=== PATIENT | female | born 1965 | race Caucasian/White ===

== ENCOUNTER → 2017-08-31 | Outpatient (CLI) | payer OTHER ==
[~2017-08-31] MED LIST: ASPEC81 PO; CZR25 PO; GADAVIST IV PRN
--- NOTE | 2017-08-31 14:17 | DIAGNOSTIC IMAGING REPORT ---
CERVICAL SPINE COMBO HISTORY: 52 years-old Female MS follow-up study in a patient with multiple sclerosis COMPARISON: Brain MRI of same day, cervical spine MRI 01/23/2014 and 03/20/2009 TECHNIQUE: Multiplanar multisequence MRI of the cervical spine was obtained both with and without the use of 8.5 mL Gadavist FINDINGS: The large tdaze-sv-gmak translator and interpreter localizer images demonstrate no focal abnormality. Imaged posterior fossa structures appear to be within normal limits. Multiple foci of increased T2 signal again noted throughout the cervical spinal cord with largest lesions measuring 8 mm at the level of C2 and 9 mm at the level of C4-C5, nicely seen on image 9 of series 14, unchanged from comparison. Ill-defined areas of increased signal are noted extending to the imaged upper thoracic spine at follow-up T3-T4, extending below the field of view. These lesions appear to be in the central and dorsal cervical spinal cord, not as well seen on the axial images. No new lesions are identified. Postcontrast images are mildly motion degraded. No abnormal enhancement identified to suggest active myelination. C2-C3: Mild intervertebral disc space narrowing with uncovertebral spurring and mild facet arthrosis. No significant central canal or foraminal narrowing. C3-C4: Mild intervertebral disc space narrowing with uncovertebral spurring and facet arthrosis. No central canal or foraminal narrowing. C4-C5: Broad-based posterior disc osteophyte complex with mild facet arthrosis indents the ventral thecal sac and causes mild bilateral foraminal narrowing, slightly progressed from comparison. C5-C6: Mild intervertebral disc space narrowing with circumferential disc osteophyte complex and mild facet arthrosis causing mild central canal and moderate bilateral foraminal narrowing, also worsened from prior study. C6-C7: Mild intervertebral disc space narrowing with uncovertebral spurring and small posterior disc bulge. Mild flattening of the ventral thecal sac. Mild facet arthrosis. Foramen are generally patent. C7-T1: Normal. IMPRESSION: 1. Redemonstration of multiple foci of increased T2 signal throughout the cervical and imaged thoracic spine which appear to be in a similar distribution and morphology from comparison study dated 01/23/2014 compatible with patient's clinical diagnosis of multiple sclerosis. No definite new lesions identified. No abnormal enhancement identified to suggest active demyelination. 2. Progressively worsened discogenic degenerative changes and facet arthropathy as above, most pronounced at C4-C5 and C5-C6. 3. Mildly motion degraded exam. The above report was generated using voice recognition software. It may contain grammatical, syntax or spelling errors. Electronically signed by: Kenji Al M.D. 08/31/2017 2:16 PM Dictated Date/Time: 08/31/2017 2:05 PM
--- NOTE | 2017-08-31 14:19 | DIAGNOSTIC IMAGING REPORT ---
MRI OF THE BRAIN COMBO CLINICAL HISTORY: Multiple sclerosis follow-up. Headaches. COMPARISON STUDY: MRI of the brain dated 01/23/2014. TECHNIQUE: MRI of the brain was performed utilizing various T1 and T2-weighted sequences in the axial, sagittal, and coronal planes. Contrast-enhanced sequences were acquired following the administration of 8.5 cc of Gadavist. FINDINGS: Brain parenchyma: There are numerous foci of T2 signal abnormality identified within the subcortical and periventricular white matter. Several of these are located antiparallel to the ventricles, and the appearance is consistent with the reported clinical history of multiple sclerosis. No abnormal enhancement is identified postcontrast images to suggest active demyelination. These findings have only minimally progressed from Nov 02 2813 examination. There is no hemorrhage or mass effect. There is no restricted diffusion to suggest acute ischemia. No enhancing mass lesion is identified on the postcontrast images. Kennedy-white matter differentiation is preserved. No extra-axial fluid collection is seen. The cerebellar tonsils are normal in configuration. Ventricles, sulci, and cisterns: Normal in configuration. Pituitary and sella: Unremarkable. Intracranial vasculature: Normal flow voids are maintained at the skull base. Orbits: The bony orbits are grossly intact. Orbital contents are normal in appearance. Sinuses and mastoids: Clear. Calvarium: Unremarkable. Cervical cord: Partially visualized cervical spinal cord is normal in morphology and signal intensity. IMPRESSION: 1. There are numerous foci of T2 signal in amount is identified consistent with reported clinical history of multiple sclerosis. No abnormal enhancement is identified on the postcontrast sequences. 2. These findings have only minimally progressed as compared to the 2013 examination. 3. No acute intracranial abnormality is seen. Electronically signed by: Carroll Urena M.D. 08/31/2017 2:17 PM Dictated Date/Time: 08/31/2017 2:01 PM
== END | disposition home or self-care (01) ==
LOC: C.MRIBC 11:55
PROVIDERS: ATTEND Psychiatry & Neurology Neurology
DX: G35 Multiple sclerosis (principal); M50.30 Other cervical disc degeneration, unspecified cervical region; M46.92 Unspecified inflammatory spondylopathy, cervical region

== ENCOUNTER 2017-11-11 15:19 | Emergency (ER) | payer OTHER ==
[~2017-11-11] VITALS: Ht 154.9 cm; Wt 82.8 kg
[~2017-11-11 15:19] MED LIST changes: -ASPEC81 PO; +ASPI-320 PO; -GADAVIST IV PRN
[2017-11-11 15:23] VITALS: TEMP 36.9; Ht 154.9 cm; Wt 82.8 kg
[2017-11-11] MEDS ORDERED: ONDANSETRON INJ 2 MG/ML 2 ML VIAL IV STA (15:53)
[2017-11-11] MEDS ORDERED: SODIUM CHLORIDE 0.9% 1000ML 1,000 ML IV STA (15:53)
--- NOTE | 2017-11-11 15:57 | EMERGENCY ROOM VISIT NOTE ---
History First contact with patient: 15:43 Chief Complaint: ABDOMINAL PAIN Stated Complaint: PAINS IN STOMACH,NAUSEA,DIARRHEA Nursing Triage Summary: pt reports "I feel like I'm going to pass out." reports dry heaving and diarrhea sine this morning wiht bilateral abd pain that radiates into back. History of Present Illness The patient is a 52 year old female who presents to the Emergency Room via private vehicle accompanied by with complaints of "pains in stomach, nausea, diarrhea". The patient notes a history of MS. She states that yesterday she started feeling ill, and then around 4 AM woke up with dry heaves and diarrhea. She notes pain going into her low back and the kidney area. She feels as if she is going to pass out. From all the dry heaving she now believes some tightness in the chest and back has occurred. She denies taking any medications today. Her pain is exacerbated with eating. She rates the overall pain as a 7/10. She notes that she did eat a hibachi grill 2 days ago. No close contacts are ill. She notes a history of laparoscopic surgeries in the abdomen which her appendix has been removed. The gallbladder is still present. 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 She denies any vaginal discharge, bleeding or urinary symptoms. Review of Systems A complete 10-point Review of Systems was discussed with the patient, with pertinent positives and negatives listed in the History of Present Illness. All remaining Review of Systems questions can be considered negative unless otherwise specified. Past Medical/Surgical History Medical Problems: (1) HTN (hypertension) (2) Left Forearm ORIF (3) Multiple sclerosis Surgical Problems: (1) S/P appendectomy (2) S/P dilation and curettage (3) S/P endometrial ablation (4) S/P sinus surgery (5) S/P tubal ligation Social History Smoking Status: Never Smoker Drug Use: none Marital Status: Housing Status: lives with family Occupation Status: employed Current/Historical Medications Scheduled Aspirin (Aspirin Ec), 81 MG PO QPM Etodolac (Etodolac Er), 1,000 MG PO QPM Zresrdyiage-Dvvzlrqcjzm-Fmu C- (Glucosamine Chondroitin), 1 TAB PO QPM Losartan Potassium (Losartan Potassium), 12.5 MG PO HS Ondasetron Odt (Zofran Odt), 4 MG SL Q6H Pantoprazole (Protonix), 40 MG PO QAM Scheduled PRN Oxycodone Ir (Roxicodone Ir), 1-2 TAB PO Q4H PRN for Pain Physical Exam Vital Signs Date Time Temp Pulse Resp B/P (MAP) Pulse Ox O2 Delivery O2 Flow Rate FiO2 11/11/17 20:19 82 20 141/78 96 11/11/17 19:10 71 28 96 Room Air 11/11/17 19:01 132/78 11/11/17 18:31 133/79 11/11/17 18:10 64 30 96 Room Air 11/11/17 18:07 77 18 145/91 95 Room Air 11/11/17 17:31 149/85 11/11/17 17:10 86 27 95 Room Air 11/11/17 17:05 69 27 95 Room Air 11/11/17 17:01 128/75 11/11/17 16:35 83 20 95 Room Air 11/11/17 16:33 71 11/11/17 16:30 93 Room Air 11/11/17 16:30 75 21 125/72 93 Room Air 11/11/17 15:23 36.9 91 20 136/80 95 Room Air Physical Exam VITAL SIGNS - Vital signs and nursing notes were reviewed. Stable. Afebrile. GENERAL -52-year-old female appearing her stated age who is in no acute distress. Communicates well with provider and answers questions appropriately. SKIN - Without rashes. No meningeal or petechial rash. HEAD - NC/AT. EYES - PERRL with EOMI bilaterally. Sclera anicteric. EARS - No deformities of external structures noted on gross examination bilaterally. NOSE - Midline and without cyanosis. No epistaxis or purulent drainage noted. MOUTH/OROPHARYNX - Without perioral cyanosis. NECK - Neck with FROM. No nuchal rigidity. LUNGS - Chest wall symmetric without accessory muscle use, intercostals retractions, or central cyanosis. Normal vesicular breath sounds CTA B/L. No wheezes, rales, or rhonchi appreciated. CARDIAC - RRR with S1/S2. No murmur, rubs, or gallops appreciated. ABDOMEN - Abdominal contour normal without pulsations or visible masses. BS normoactive all four quadrants. Diffuse abdominal tenderness worse in the upper quadrants noted. No rigid abdomen. No palpable masses, hepatosplenomegaly, or ascites noted. EXTREMITIES - No clubbing or peripheral cyanosis. No pretibial edema present. +5 /5 strength noted in UE/LE bilaterally. NEUROLOGIC - Cranial nerves II through XII grossly intact. Sensory intact to light touch throughout. PSYCH - A&O, and cooperates fully with examiner. Pt is very pleasant and interacts well with examiner. Medical Decision & Procedures ER Provider Diagnostic Interpretation: ABDOMEN AND PELVIS CT WITH IV AND ORAL CONTRAST CT DOSE: 642.66 mGy.cm HISTORY: Acute generalized abdominal pain with nausea and diarrhea Abd pain, nausea, diarrhea TECHNIQUE: Multiaxial CT images of the abdomen and pelvis were performed following the use of intravenous and oral contrast. A dose lowering technique was utilized adhering to the principles of ALARA. COMPARISON STUDY: CT abdomen and pelvis 03/20/2010. FINDINGS: Mild subsegmental bibasilar atelectasis. No pneumatosis or pneumoperitoneum. Imaged inferior cardiac chambers are unremarkable. Liver, gallbladder, spleen, pancreas and adrenal glands are within normal limits. 4 mm low attenuating lesion of the interpolar left kidney suggests renal cyst. No renal calculi or hydronephrosis. Mild wall thickening of the bladder with partial distention. Peripherally enhancing cystic lesion about the right adnexum suggests involuting follicle. Mild free pelvic fluid. Mildly prominent uterus with ill-defined 1.6 cm lesion involving the uterine fundus. No aortic aneurysm or pathologic adenopathy. There is no bowel obstruction. Prior appendectomy. There is moderate wall thickening with surrounding inflammatory stranding involving several loops of small bowel within the lower abdomen and pelvis. Soft tissues are unremarkable. The bones appear mildly demineralized. Severe left and moderate right hip osteoarthritis. IMPRESSION: 1. Moderate wall thickening with surrounding inflammatory stranding involves several loops of small bowel within the lower abdomen and pelvis suggesting infectious or inflammatory enteritis without evidence of bowel obstruction. 2. Prior appendectomy. 3. 1.6 cm ill-defined lesion of the uterine fundus suggests myometrial leiomyoma. 4. Small involuting follicle about the right ovary. Electronically signed by: Kenji Al M.D. 11/11/2017 7:16 PM Dictated Date/Time: 11/11/2017 7:08 PM Laboratory Results 11/11/17 16:20 Red Blood Count 4.57, Mean Corpuscular Volume 89.3, Mean Corpuscular Hemoglobin 30.6, Mean Corpuscular Hemoglobin Concent 34.3, Mean Platelet Volume 9.5, Neutrophils (%) (Auto) 86.6, Lymphocytes (%) (Auto) 10.4, Monocytes (%) (Auto) 2.9, Eosinophils (%) (Auto) 0.0, Basophils (%) (Auto) 0.0, Neutrophils # (Auto) 6.79, Lymphocytes # (Auto) 0.82, Monocytes # (Auto) 0.23, Eosinophils # (Auto) 0.00, Basophils # (Auto) 0.00 11/11/17 16:20 Test 11/11/17 16:20 White Blood Count 7.85 K/uL (4.8-10.8) Red Blood Count 4.57 M/uL (4.2-5.4) Hemoglobin 14.0 g/dL (12.0-16.0) Hematocrit 40.8 % (37-47) Mean Corpuscular Volume 89.3 fL (80-100) Mean Corpuscular Hemoglobin 30.6 pg (25-34) Mean Corpuscular Hemoglobin Concent 34.3 g/dl (32-36) Platelet Count 207 K/uL (130-400) Mean Platelet Volume 9.5 fL (7.4-10.4) Neutrophils (%) (Auto) 86.6 % Lymphocytes (%) (Auto) 10.4 % Monocytes (%) (Auto) 2.9 % Eosinophils (%) (Auto) 0.0 % Basophils (%) (Auto) 0.0 % Neutrophils # (Auto) 6.79 K/uL (1.4-6.5) Lymphocytes # (Auto) 0.82 K/uL (1.2-3.4) Monocytes # (Auto) 0.23 K/uL (0.11-0.59) Eosinophils # (Auto) 0.00 K/uL (0-0.5) Basophils # (Auto) 0.00 K/uL (0-0.2) RDW Standard Deviation 41.4 fL (36.4-46.3) RDW Coefficient of Variation 12.8 % (11.5-14.5) Immature Granulocyte % (Auto) 0.1 % Immature Granulocyte # (Auto) 0.01 K/uL (0.00-0.02) Urine Color DK YELLOW Urine Appearance CLOUDY (CLEAR) Urine pH 5.0 (4.5-7.5) Urine Specific Hamilton 1.034 (1.000-1.030) Urine Protein NEG (NEG) Urine Glucose (UA) NEG (NEG) Urine Ketones TRACE (NEG) Urine Occult Blood NEG (NEG) Urine Nitrite NEG (NEG) Urine Bilirubin NEG (NEG) Urine Urobilinogen NEG (NEG) Urine Leukocyte Esterase NEG (NEG) Urine WBC (Auto) 1-5 /hpf (0-5) Urine RBC (Auto) 0-4 /hpf (0-4) Urine Hyaline Casts (Auto) 5-10 /lpf (0-5) Urine Epithelial Cells (Auto) >30 /lpf (0-5) Urine Bacteria (Auto) NEG (NEG) Urine Crystals (NONE PRSENT) Urine Yeast (Auto) (NONE PRSENT) Urine Test NEG (NEG) Anion Gap 7.0 mmol/L (3-11) Est Creatinine Clear Calc Drug Dose 71.3 ml/min Estimated GFR () 84.1 Estimated GFR (Non- 72.6 BUN/Creatinine Ratio 13.5 (10-20) Calcium Level 8.6 mg/dl (8.5-10.1) Magnesium Level 2.1 mg/dl (1.8-2.4) Total Bilirubin 0.6 mg/dl (0.2-1) Aspartate Amino Transf (AST/SGOT) 14 U/L (15-37) Alanine Aminotransferase (ALT/SGPT) 19 U/L (12-78) Alkaline Phosphatase 58 U/L (45-117) Troponin I < 0.015 ng/ml (0-0.045) Total Protein 7.6 gm/dl (6.4-8.2) Albumin 3.6 gm/dl (3.4-5.0) Globulin 4.0 gm/dl (2.5-4.0) Albumin/Globulin Ratio 0.9 (0.9-2) Lipase 126 U/L (73-393) Thyroid Stimulating Hormone (TSH) 0.598 uIu/ml (0.300-4.500) Medications Administered Medications (Trade) Dose Ordered Sig/Valeria Route Start Time Stop Time Status Last Admin Dose Admin Sodium Chloride 1,000 ml @ 999 mls/hr Q1H1M STAT IV 11/11/17 15:53 5/16/18 16:53 DC 11/11/17 16:27 999 MLS/HR Ondansetron HCl (Zofran Inj) 4 mg NOW STAT IV 11/11/17 15:53 11/11/17 15:55 DC 11/11/17 16:27 4 MG Oxycodone HCl (Roxicodone Immediate Rel 5MG Home Pack) 1 homepack UD STAT PO 11/11/17 19:42 11/11/17 19:43 DC 11/11/17 20:12 1 HOMEPACK Ondansetron HCl (ZOFRAN ODT 4MG Home Pack) 1 homepack UD STAT PO 11/11/17 19:42 11/11/17 19:43 DC 11/11/17 20:12 1 HOMEPACK Medical Decision Patient was seen and evaluated as above in room C3. Review was performed of nursing notes and vital signs. After obtaining a thorough history and physical examination the above work up was performed. Secondary to the patient's presentation I did elect to obtain baseline labs as well as bedside EKG with the associated chest tightness. And reveals normal sinus rhythm, per my interpretation at a rate of 76 bpm. No evidence of DE. Additionally there is no concerning leukocytosis, anemia or metabolic abnormality. Urine I do not believe shows any evidence of UTI but culture pending. I did elect to obtain a CT scan of the patient's abdomen and pelvis secondary to her presentation as well. Results as above. Enteritis noted. I favor this likely to be viral in nature. I did elect to discuss the case with the attending physician, as well as the on-call GI specialist for [facility]. I spoke with Dr. Panchal. The patient will call his office to schedule follow-up. I believe she is stable for outpatient management. Humphreys diet recommended. She is to call the family doctor as well as a GI specialist for follow-up. She is to return with worsening. The patient was educated upon management, had questions answered prior to discharge, and was discharged home in good condition. I did provide her with a written order for stool culture, C. difficile toxin B gene, and Giardia. She was given a kit so that she may provide sample at home as she was unable to provide sample here. Case was discussed with the attending physician. I attest that I have personally reviewed the patient medication list. I attest that I have reviewed the patient's blood pressure and it was found to be elevated likely secondary to situation per In the evaluation and treatment of this patient the following differential diagnoses were entertained: Diverticulitis, enteritis, appendicitis, ovarian torsion, acute intra-abdominal etiology, among others. Impression Primary Impression: Enteritis Departure Information Dispostion Home / Self-Care Condition GOOD Prescriptions Oxycodone Ir (Roxicodone Ir) 5 Mg Tab 1-2 TAB PO Q4H Y for Pain, #15 TAB For Initial Treatment Prov: Simone Hayes PA-C 11/11/17 Ondasetron Odt (ZOFRAN ODT) 4 Mg Tab 4 MG SL Q6H for Nausea, #9 TAB Prov: Simone Hayes PA-C 11/11/17 Referrals Mary Resendiz D.O. (PCP) Salome Panchal M.D. Patient Instructions My [facility] Additional Instructions You have been treated in the Emergency Department your Abdominal Pain. Laboratory results and imaging studies have ruled out any emergent causes for your abdominal pain which would warrant admission or surgery. There is enteritis/inflammation in the small intestine likely from something you ate or from a virus. I recommend a bland soft diet for the next few days. Please stay well-hydrated. You have been prescribed oxycodone immediate release to be used for pain control. This is a narcotic medication. You cannot drive or consume alcohol while on this medicine. This medicine should only be used for pain that cannot be controlled with elka-yvr-wwgucfe pain medicines. You have been prescribed Zofran to be used for any nausea or vomiting. Take as prescribed. For pain control, you can use the following lmcx-lll-vtkcoun medicines (if >12 yo): - Regular strength (325mg/tab) Tylenol (acetaminophen) 2 tabs every 4-6 hours as needed. Do not exceed 12 tablets in a 24 hour period. Avoid taking more than 3 grams (3000 mg) of Tylenol per day. This includes any other sources of acetaminophen you may take on a regular basis. - Regular strength (200 mg/tab) Advil (ibuprofen) 1-2 tabs every 4-6 hours as needed. Do not exceed a dose of 3200 mg per day. Drink plenty of water and stay well hydrated. As with any trip to the Emergency Department, you should follow-up with your Primary Care Provider from today's visit. Please also follow with GI. Number listed. If you do not have a phone call from them by tomorrow at noon please give him a call. Please also provide stool sample and return here to the hospital. I have listed the prescription of which copies your family doctor Dr. Resendiz with results. Please have this refrigerated until you bring it here for examination. Thank you Return to the emergency department if your symptoms persist despite treatment plan outlined above or if the following symptoms occur: increased fevers, chills , worsening nausea/vomiting, blood in your stool or urine. Thank you and have a good evening.
[2017-11-11 16:30] VITALS: O2SAT 93
[2017-11-11 16:45] LABS: HEMATOCRIT 40.8 % (37-47); IG# 0.01 K/uL (0.00-0.02); LYMPH % 10.4 %; LYMPH ABS # 0.82 K/uL (1.2-3.4); MEAN CELL VOLUME 89.3 fL (80-100); MEAN CORPUSCULAR HEMOGLOBIN 30.6 pg (25-34); MEAN CORPUSCULAR HGB CONC 34.3 g/dl (32-36); MEAN PLATELET VOLUME 9.5 fL (7.4-10.4); MONO % 2.9 %; MONO ABS # 0.23 K/uL (0.11-0.59); NEUT % 86.6 %; NEUT ABS # 6.79 K/uL (1.4-6.5); PLATELET COUNT 207 K/uL (130-400); RED CELL DISTRIBUTION WIDTH CV 12.8 % (11.5-14.5); RED CELL DISTRIBUTION WIDTH SD 41.4 fL (36.4-46.3); WHITE BLOOD COUNT 7.85 K/uL (4.8-10.8)
[2017-11-11] MEDS ORDERED: OPTIRAY 320 IV PRN (16:45)
[2017-11-11] MEDS ORDERED: GLUCTAB7 PO (17:18)
[2017-11-11] MEDS ORDERED: PANT40TA PO (17:18)
[2017-11-11] MEDS ORDERED: ASPI81TA28 PO (17:18)
[2017-11-11] MEDS ORDERED: CZR25 PO (17:18)
[2017-11-11] MEDS ORDERED: ETOD500T PO (17:18)
[2017-11-11 17:20] LABS: ALBUMIN 3.6 gm/dl (3.4-5.0); ALKALINE PHOSPHATASE 58 U/L (45-117); ALT/SGPT 19 U/L (12-78); AST/SGOT 14 U/L (15-37); BLOOD UREA NITROGEN 12 mg/dl (7-18); CALCIUM 8.6 mg/dl (8.5-10.1); CARBON DIOXIDE 24 mmol/L (21-32); CREATININE 0.92 mg/dl (0.60-1.20); GLUCOSE 115 mg/dl (70-99); LIPASE 126 U/L (73-393); POTASSIUM 3.7 mmol/L (3.5-5.1); SODIUM 138 mmol/L (136-145); TOTAL PROTEIN 7.6 gm/dl (6.4-8.2)
--- NOTE | 2017-11-11 19:18 | DIAGNOSTIC IMAGING REPORT ---
ABDOMEN AND PELVIS CT WITH IV AND ORAL CONTRAST CT DOSE: 642.66 mGy.cm HISTORY: Acute generalized abdominal pain with nausea and diarrhea Abd pain, nausea, diarrhea TECHNIQUE: Multiaxial CT images of the abdomen and pelvis were performed following the use of intravenous and oral contrast. A dose lowering technique was utilized adhering to the principles of ALARA. COMPARISON STUDY: CT abdomen and pelvis 03/20/2010. FINDINGS: Mild subsegmental bibasilar atelectasis. No pneumatosis or pneumoperitoneum. Imaged inferior cardiac chambers are unremarkable. Liver, gallbladder, spleen, pancreas and adrenal glands are within normal limits. 4 mm low attenuating lesion of the interpolar left kidney suggests renal cyst. No renal calculi or hydronephrosis. Mild wall thickening of the bladder with partial distention. Peripherally enhancing cystic lesion about the right adnexum suggests involuting follicle. Mild free pelvic fluid. Mildly prominent uterus with ill-defined 1.6 cm lesion involving the uterine fundus. No aortic aneurysm or pathologic adenopathy. There is no bowel obstruction. Prior appendectomy. There is moderate wall thickening with surrounding inflammatory stranding involving several loops of small bowel within the lower abdomen and pelvis. Soft tissues are unremarkable. The bones appear mildly demineralized. Severe left and moderate right hip osteoarthritis. IMPRESSION: 1. Moderate wall thickening with surrounding inflammatory stranding involves several loops of small bowel within the lower abdomen and pelvis suggesting infectious or inflammatory enteritis without evidence of bowel obstruction. 2. Prior appendectomy. 3. 1.6 cm ill-defined lesion of the uterine fundus suggests myometrial leiomyoma. 4. Small involuting follicle about the right ovary. Electronically signed by: Kenji Al M.D. 11/11/2017 7:16 PM Dictated Date/Time: 11/11/2017 7:08 PM
[2017-11-11] MEDS ORDERED: OXYCODONE IR HOME PACK PO STA (19:42)
[2017-11-11] MEDS ORDERED: ONDANSETRON HOME PACK 4MG OD TAB PO STA (19:42)
[2017-11-11] MEDS ORDERED: OXYC1TAB3 PO (19:43)
[2017-11-11] MEDS ORDERED: ONDA4TAB10 SL (19:43)
[2017-11-11 20:19] VITALS: BP 141/78; PULSE 82; O2SAT 96
== END 2017-11-11 20:15 | disposition home or self-care (01) ==
LOC: C.EDB 15:20 → C.EDC 20:15
DX: K52.9 Noninfective gastroenteritis and colitis, unspecified (principal); G35 Multiple sclerosis; I10 Essential (primary) hypertension; Z98.51 Tubal ligation status; Z79.82 Long term (current) use of aspirin; Z79.899 Other long term (current) drug therapy

== ENCOUNTER 2019-11-11 10:57 | Inpatient (IN) ==
[2019-11-11] MEDS ORDERED: SODIUM CHLORIDE 0.9% 1000ML 1,000 ML IV ONE (11:23)
[2019-11-11] MEDS ORDERED: ACETAMINOPHEN 1,000 MG/100 ML VIAL IV STA (11:23)
[2019-11-11] MEDS ORDERED: ONDANSETRON INJ 2 MG/ML 2 ML VIAL IV STA (11:23)
--- NOTE | 2019-11-11 11:45 | XRay Report ---
XR chest 1V portable HISTORY: 54 years-old Female left flank pain acute left-sided flank pain with chest pain COMPARISON: Chest radiograph 03/20/2015 TECHNIQUE: Portable AP view of the chest FINDINGS: Cardiac silhouette is upper limits of normal in size. Mild interstitial coarsening of the lung bases likely secondary to summation density. No pneumothorax, pleural effusion, airspace consolidation or o vert pulmonary edema. Degenerative changes of the shoulders and spine. IMPRESSION: No acute process. ACT 112: Negative or not required by law. The above report was generated using voice recognition software. It may contain grammatical, syntax o r spelling errors. Electronically signed by: Kenji Al M.D. 11/11/2019 11:43 AM
--- NOTE | 2019-11-11 11:56 | Emergency Department Note ---
History of Present Illness General Chief Complaint: Flank Pain Stated Complaint: KIDNEY PAIN - SHARP STABBING FEELING Source: patient Mode of arrival: ambulatory Limitations: no limitations History of Present Illness Provider Complaint: abdominal pain and flank pain Onset (ago): 1 day(s) Pain Consistency: intermittent Location: L flank Radiation: LLQ and back Migration to: no migration Severity: severe Maximum Pain Intensity: 8 Current Pain Intensity: 8 Quality: + sharp Relieved By: + nothing Exacerbated By: + movement and + other (deep breathing) Associated Symptoms: + nausea and + chills; no vomiting, no diarrhea, no fever, no constipation, no dysuria, no hematemesis, no hematochezia, no melena, no hematuria, no chest pain and no breathing difficulty Treatments prior to arrival: none This 54-year-old female patient significant past medical history of MS presents the emergency department today, ambulatory, complaining of left flank pain which came on suddenly at 2 AM. The patient describes a stabbing and sharp sensation radiating to her left lower quadrant and up toward her shoulder and neck. The pain is somewhat better now than it was at 2 AM, but she has taken no medication . The pain is worse with deep breathing, but she denies any difficulty breathing. She denies any history of similar symptoms. She is never had pain like this before. She denies any chest pain. The patient denies any hematuria, urinary frequency, urinary hesitancy. She denies any fever or recent illness. She does complain of hot bath stress, but states this is typical since menopause. Patient denies any cough. She denies any recent injury or potential for injury. She states for the past 3 to 4 months, she has been experiencing bilateral edema in her ankles. She is dealing with "bad hips", and states her PCP attributed be ankle edema to the hip injuries. She denies any edema or pain into the calf. She denies any recent travel or procedures. She does report a history of a superficial venous thrombus after a traumatic injury several years ago, but denies any history of DVT or PE. She has a positive family history of PE and states her mother had an IVC filter placed. The edema has not changed since the onset of the flank pain. Home Medications Home Medications Medication Instructions Recorded Confirmed Type etodolac 1,000 mg PO DAILY 07/17/18 11/11/19 History [id number] 2 tab PO QPM 07/17/18 11/11/19 History [Glucosamine Chondroitin PLUS] losartan 12.5 mg PO DAILY 07/17/18 11/11/19 History pantoprazole [Protonix] 40 mg PO DAILY 07/17/18 11/11/19 History furosemide 20 mg PO DAILY PRN 11/11/19 11/11/19 History hydrocortisone acetate 25 mg OR BID PRN 11/11/19 11/11/19 History melatonin 0.3 mg PO HS PRN 11/11/19 11/11/19 History nitroglycerin [Nitro-Bid] 500 mg TOPICAL BID PRN 11/11/19 11/11/19 History Allergies Allergy/AdvReac Type Severity Reaction Status Date / Time propoxyphene AdvReac Unknown UPSET Verified 11/11/19 13:48 STOMACH FROM DARVOCET Past Med/Surg History Medical History (Updated 11/11/19 @ 15:11 by Kyara Salazar PA-C) HTN (hypertension) (Chronic) Multiple sclerosis (Chronic) Surgical History S/P appendectomy (Resolved) S/P S/P dilation and curettage (Resolved) S/P endometrial ablation (Resolved) S/P sinus surgery (Resolved) S/P tubal ligation (Resolved) Family History Mother Pulmonary embolism IVC Filter, unclear etiology Social History Preferred Language: [place] Communication Ability: Effective Talent Management Specialist Required: No Beliefs That Will Affect Care: None marital status: Current Living Situation: Spouse current occupational status: employed Other Information That Helps Us Care for You: No Feels Safe at Home: Yes Safety Concerns: Feels Safe At This Time Smoking Status: Never smoker Do You Dip or Chew Tobacco: No ; Second Hand Exposure: No ; Tobacco Cessation Education Requested by Patient: No Hx Alcohol Use: Yes Hx Substance Use: No Review of Systems A total of 10 systems reviewed and were otherwise negative Physical Exam Vital Signs: Vital Signs - 24 hr 11/11/19 11:02 11/11/19 11:51 11/11/19 12:14 Temperature Source Oral Pulse Rate 76 Pulse Rhythm Regular Pulse Strength Normal Respiratory Rate 23 Respiratory Effort / Characteristics Non-Labored Sponta neous Respiratory Depth Normal Respiratory Patter n Regular Blood Pressure 166/100 H 187/89 H Blood Pressure Brit n 122 121 Pulse Oximetry 97 95 Oxygen Delivery Me thod Room Air Room Air Room Air Sepsis Recent Feve r Within 48 Hours No Sepsis Action Take n by Nursing No Action Required Physical Exam: VITALS: Vitals are noted on the nurse's note and reviewed by myself. Vital signs stable. GENERAL: This is a 54-year-old white female, in no acute distress, nondiaphoretic, well-developed well-nourished. SKIN: The skin was without rashes, erythema, edema, or bruising. There is no tenting of the skin. Capillary refill less than 2 seconds. HEAD: Normocephalic atraumatic. EYES: Conjunctivae without injection, sclerae without icterus. NECK: Supple without nuchal rigidity. No lymphadenopathy. No thyromegaly. Cervical spine is nontender. No JVD. HEART: Regular rate and rhythm without murmurs gallops or rubs. LUNGS: Clear to auscultation bilaterally without wheezes, rales or rhonchi. No retractions or accessory muscle use. ABDOMEN: Positive bowel sounds x 4. Normal tympanic percussion. Left CVA tenderness to palpation. Bilateral lower abdominal tenderness palpation. Abdomen is otherwise soft, nontender, without masses or organomegaly. No guarding or rebound tenderness. MUSCULOSKELETAL: No muscle atrophy, erythema, or edema noted. Full range of motion without joint tenderness in all extremities. No tenderness to palpation. Normal gait. Strength 5/5 throughout. Negative Homans sign bilaterally. No palpable cord. NEURO: Patient was alert and oriented to person place and time. No focal neurological deficits. Course Course The patient was seen and evaluated as above. An order was placed for continuous cardiac monitoring. The monitor shows a normal sinus rhythm at a rate of 76 bpm. IV access obtained, labs drawn. Patient medicated with IV fluids, Zofran, and acetaminophen. Imaging (CT abdomen/pelvis and chest x-ray) performed and reviewed by myself and radiologist as noted. Labs reviewed by myself. I discussed the findings with the patient at bedside. She was reassessed and is noting some improvement in symptoms. I did recommend a CT angiogram of the chest due to the positive d-dimer and location of the patient's pain. Patient was agreeable. I discussed case with my attending physician. CTA chest performed and reviewed by myself and radiologist as noted. I discussed findings with patient at bedside. The patient was seen and evaluated by my attending physician. Admission recommended given the patient's MS and hypertension history, as well as leg pain. Ultrasound bilateral lower extremities ordered. I discussed the case with the commissioning manager. I discussed the case with the [facility] hospitalist, Leana Levy PA-C. She did agree to see and evaluate the patient for admission. Administered Medications Heparin Sodium/Dextrose (Heparin Sodium/Dextrose) 25,000 units in 500 mls @ 23 mls/hr IV .[id number] CAESAR; Protocol Stop: 12/11/19 13:29 Last Admin: 11/11/19 14:02 Dose: 1,150 units/hr, 23 mls/hr Documented by: [id number] Cosigned by: [id number] Ioversol (Optiray 320 125ml) 120 ml IV ONCE PRN PRN Reason: Interaction Checking Stop: 11/15/19 12:50 Last Admin: 11/11/19 12:51 Dose: 120 ml Documented by: [id number] Discontinued Medications Heparin Sodium (Porcine) (Heparin Sodium (Porcine)) Confirm Administered Dose 5,000 units .ROUTE .STK-MED ONE Stop: 11/11/19 13:56 Last Admin: 11/11/19 14:02 Dose: 5,000 units Documented by: [id number] Cosigned by: [id number] Heparin Sodium/Dextrose () 1 ea IV NOW STA; Protocol Stop: 11/11/19 13:22 Last Admin: 11/11/19 14:07 Dose: Not Given Documented by: [id number] Sodium Chloride (Nss 1000ml) 1,000 mls @ 999 mls/hr IV .[id number] ONE Stop: 11/11/19 12:23 Last Infusion: 11/11/19 12:47 Dose: 0 mls/hr Documented by: [id number] Admin: 11/11/19 11:45 Dose: 999 mls/hr Documented by: [id number] Acetaminophen (Ofirmev) 1,000 mg in 100 mls @ 400 mls/hr IV NOW STA Stop: 11/11/19 11:37 Last Infusion: 11/11/19 12:04 Dose: 0 mls/hr Documented by: [id number] Admin: 11/11/19 11:45 Dose: 400 mls/hr Documented by: [id number] Ondansetron HCl (Zofran) 4 mg IV NOW STA Stop: 11/11/19 11:24 Last Admin: 11/11/19 11:47 Dose: 4 mg Documented by: [id number] Medical Decision Making Differential Diagnosis + peptic ulcer disease, + biliary pathology, + UTI, + obstruction, + mesenteric ischemia, + aortic pathology, + infections, + inflammatory bowel disease, + renal colic, + ectopic (female), + ovarian torsion (female), + tubo- ovarian abscesses (female), + pelvic inflammatory disease (female), + abdominal pain, + appendicitis, + calculus of kidney, + constipation, + diverticulitis, + endometriosis, + gastroenteritis, + pancreatitis and + small bowel obstruction In addition to the above, PE, acute coronary syndrome, among others were considered. Home Medications Current Medication List: was personally reviewed by me Laboratory Data Attestation: I reviewed the patient's lab results. No leukocytosis, anemia, thrombocytopenia. Renal, hepatic function, and electrolytes without significant abnormality. Urinalysis negative for blood or infection. Urine test negative. D-dimer elevated greater than 3000. Coags otherwise normal. Troponin negative. Lipase 126. Result diagrams: 11/11/19 11:45 11/11/19 11:45 Lab Results 11/11/19 11/11/19 11/11/19 Range/Units 11:30 11:30 11:45 WBC 9.31 (4.8-10.8) K/uL RBC 4.65 (4.2-5.4) M/uL Hgb 14.2 (12.0-16.0) g/dL Hct 42.3 (37-47) % MCV 91.0 (80-100) fL MCH 30.5 (25-34) pg MCHC 33.6 (32-36) g/dL RDW Std Deviation 42.7 (36.4-46.3) fL RDW Coeff of [place] 12.9 (11.5-14.5) % Plt Count 235 (130-400) K/uL MPV 9.7 (7.4-10.4) fL Immature Gran % (Auto) 0.3 % Neut % (Auto) 79.6 % Lymph % (Auto) 12.2 % [place] % (Auto) 7.5 % Eos % (Auto) 0.3 % Baso % (Auto) 0.1 % Immature Gran # (Auto) 0.03 H (0.00-0.02) K/uL Neut # (Auto) 7.40 H (1.4-6.5) K/uL Lymph # (Auto) 1.14 L (1.2-3.4) K/uL [place] # (Auto) 0.70 H (0.11-0.59) K/uL Eos # (Auto) 0.03 (0-0.5) K/uL Baso # (Auto) 0.01 (0-0.2) K/uL PT (9.0-12.0) Seconds INR (0.9-1.1) APTT (21.0-31.0) Seconds PTT Ratio D-Dimer (0-500) ug/L FEU Sodium (136-145) mmol/L Potassium (3.5-5.1) mmol/L Chloride (98-107) mmol/L Carbon Dioxide (21-32) mmol/L Anion Gap (3-11) BUN (7-18) mg/dl Creatinine (0.6-1.2) mg/dl Est Cr Clr Drug Dosing ml/min Est GFR ( Amer) Est GFR (Non-Af Amer) BUN/Creatinine Ratio (10-20) Glucose (70-99) mg/dl Calcium (8.5-10.1) mg/dl Total Bilirubin (0.2-1) mg/dl AST (15-37) U/L ALT (12-78) U/L Alkaline Phosphatase (45-117) U/L Troponin I (0-0.045) ng/ml Total Protein (6.4-8.2) gm/dl Albumin (3.4-5.0) gm/dl Globulin (2.5-4.0) gm/dl Albumin/Globulin Ratio (0.9-2) Lipase (73-393) U/L Urine Color Dark Yellow Urine Appearance Turbid A (Clear) Urine pH 5.0 (4.5-7.5) Ur Specific [place] 1.027 (1.000-1.030) Urine Protein Negative (Negative) Urine Glucose (UA) Negative (Negative) Urine Ketones Trace H (Negative) Urine Blood Negative (Negative) Urine Nitrite Negative (Negative) Urine Bilirubin Negative (Negative) Urine Urobilinogen Negative (Negative) Ur Leukocyte Esterase Negative (Negative) Urine WBC (Auto) 1-5 (0-5) /hpf Urine RBC (Auto) >30 H (0-4) /hpf U Hyaline Cast (Auto) 1-5 (0-5) /lpf U Epithel Cells (Auto) >30 H (0-5) /lpf Urine Bacteria (Auto) Negative (Negative) POC Ur Test NEG (NEG) 11/11/19 11/11/19 Range/Units 11:45 11:45 WBC (4.8-10.8) K/uL RBC (4.2-5.4) M/uL Hgb (12.0-16.0) g/dL Hct (37-47) % MCV (80-100) fL MCH (25-34) pg MCHC (32-36) g/dL RDW Std Deviation (36.4-46.3) fL RDW Coeff of [place] (11.5-14.5) % Plt Count (130-400) K/uL MPV (7.4-10.4) fL Immature Gran % (Auto) % Neut % (Auto) % Lymph % (Auto) % [place] % (Auto) % Eos % (Auto) % Baso % (Auto) % Immature Gran # (Auto) (0.00-0.02) K/uL Neut # (Auto) (1.4-6.5) K/uL Lymph # (Auto) (1.2-3.4) K/uL [place] # (Auto) (0.11-0.59) K/uL Eos # (Auto) (0-0.5) K/uL Baso # (Auto) (0-0.2) K/uL PT 10.9 (9.0-12.0) Seconds INR 1.0 (0.9-1.1) APTT 25.2 (21.0-31.0) Seconds PTT Ratio 0.9 D-Dimer 3540 H* (0-500) ug/L FEU Sodium 139 (136-145) mmol/L Potassium 3.6 (3.5-5.1) mmol/L Chloride 105 (98-107) mmol/L Carbon Dioxide 27 (21-32) mmol/L Anion Gap 7.0 (3-11) BUN 13 (7-18) mg/dl Creatinine 0.94 (0.6-1.2) mg/dl Est Cr Clr Drug Dosing 71.3 ml/min Est GFR ( Amer) 80.8 Est GFR (Non-Af Amer) 69.8 BUN/Creatinine Ratio 13.4 (10-20) Glucose 102 H (70-99) mg/dl Calcium 9.2 (8.5-10.1) mg/dl Total Bilirubin 0.6 (0.2-1) mg/dl AST 14 L (15-37) U/L ALT 21 (12-78) U/L Alkaline Phosphatase 95 (45-117) U/L Troponin I < 0.015 (0-0.045) ng/ml Total Protein 8.6 H (6.4-8.2) gm/dl Albumin 4.0 (3.4-5.0) gm/dl Globulin 4.6 H (2.5-4.0) gm/dl Albumin/Globulin Ratio 0.9 (0.9-2) Lipase 126 (73-393) U/L Urine Color Urine Appearance (Clear) Urine pH (4.5-7.5) Ur Specific [place] (1.000-1.030) Urine Protein (Negative) Urine Glucose (UA) (Negative) Urine Ketones (Negative) Urine Blood (Negative) Urine Nitrite (Negative) Urine Bilirubin (Negative) Urine Urobilinogen (Negative) Ur Leukocyte Esterase (Negative) Urine WBC (Auto) (0-5) /hpf Urine RBC (Auto) (0-4) /hpf U Hyaline Cast (Auto) (0-5) /lpf U Epithel Cells (Auto) (0-5) /lpf Urine Bacteria (Auto) (Negative) POC Ur Test (NEG) Imaging Data Radiologist's Impression: XR chest 1V portable HISTORY: 54 years-old Female left flank pain acute left-sided flank pain with chest pain COMPARISON: Chest radiograph 03/20/2015 TECHNIQUE: Portable AP view of the chest FINDINGS: Cardiac silhouette is upper limits of normal in size. Mild interstitial coarsening of the lung bases likely secondary to summation density. No pneumothorax, pleural effusion, airspace consolidation or overt pulmonary edema. Degenerative changes of the shoulders and spine. IMPRESSION: No acute process. ACT 112: Negative or not required by law. The above report was generated using voice recognition software. It may contain grammatical, syntax or spelling errors. Electronically signed by: Kenji Al M.D. 11/11/2019 11:[address] abd pelvis wo con CLINICAL HISTORY: 54 years-old Female presenting with left flank pain. TECHNIQUE: Multidetector CT of the abdomen and pelvis was performed without the use of intravenous contrast. IV contrast: None. One or more dose lowering techniques were used consistent with the principles of ALARA (as low as reasonably achievable), including automatic exposure control, mA or kV adjustment to individual patient size, and/or use of iterative reconstruction. COMPARISON: 11/11/2017. CT DOSE (mGy.cm): The estimated cumulative dose is 827.76 mGy.cm. FINDINGS: Property Insurance Claims Examiner topogram: Unremarkable. Lung bases: Normal heart size. Coronary artery calcification. Trace left pleural effusion. Minimal dependent changes likely atelectasis. Liver: Normal morphology. Normal density. Biliary: No gross biliary ductal dilatation allowing for noncontrast technique. Normal gallbladder. Pancreas: Normal noncontrast appearance. Spleen: Normal noncontrast appearance. Adrenal glands: Normal noncontrast appearance. Kidneys and ureters: Normal noncontrast appearance. No nephrolithiasis. No hydronephrosis. Normal ureters. Bladder: Incompletely evaluated secondary to underdistention. Pelvic organs: Normal noncontrast appearance. Bowel: The appendix is absent. No bowel obstruction. Peritoneal cavity: No free fluid or intraperitoneal gas. Lymph nodes: No gross lymphadenopathy allowing for noncontrast technique. Vasculature: Normal noncontrast appearance. Abdominal wall: Small fat-containing umbilical hernia. Musculoskeletal: Degenerative changes of the spine. Advanced degenerative changes of the left hip. Lesser degenerative changes of the right hip. IMPRESSION: 1. Allowing for noncontrast technique, no acute intra-abdominal pathology. ACT 112: Negative or not required by law. Electronically signed by: Girma Talley M.D. 11/11/2019 12:[address] angio chest PE protocol CLINICAL HISTORY: 54 years-old Female presenting with pleuritic chest pain, elevated d-dimer, left flank pain, shortness of breath. TECHNIQUE: Multidetector CT angiography of the chest was performed after admin istration of intravenous contrast. 3-D volumetric and/or maximum intensity projection (MIP) images were subsequently reconstructed for review. IV contrast: 120 mL of Optiray 320. One or more dose lowering techniques were used consistent with the principles of ALARA (as low as reasonably achievable), including automatic exposure control, mA or kV adjustment to individual patient size, and/or use of iterative reconstruction. COMPARISON: 03/19/2015. CT DOSE (mGy.cm): The estimated cumulative dose is 485.49 mGy.cm. FINDINGS: Property Insurance Claims Examiner topogram: Unremarkable. Pulmonary vasculature: The study is suboptimal for the assessment of the pulmonary vascular tree secondary to timing of the contrast bolus. Scattered segmental and subsegmental acute pulmonary emboli predominantly in the lower lobes. Main pulmonary artery is not enlarged. No flattening of the interventricular septum. No intracardiac filling defect. No reflux of contrast into the hepatic veins. Remaining chest: Soft tissues: Normal thyroid and thoracic inlet. No axillary, supraclavicular, mediastinal, or hilar lymphadenopathy. 4 vessel aortic arch. Normal heart size. Coronary artery calcification. Trace left pleural effusion. Upper abdomen normal. Lungs and airways: No pneumothorax. Central airways patent. Pulmonary arteries a re not significantly enlarged relative to adjacent bronchi. No interlobular septal thickening. Minimal dependent groundglass opacity in the left lower lobe. Musculoskeletal: Normal osseous structures. IMPRESSION: 1. Acute pulmonary emboli in segmental and subsegmental pulmonary arteries in the lower lobes. No CT evidence of right heart strain. 2. Minimal dependent groundglass opacity in the left lower lobe, possibly atelectasis versus hemorrhage. 3. Trace left pleural effusion is likely reactive. The report will be called/faxed according to standard departmental protocol for a critical finding. ACT 112: Negative or not required by law. Electronically signed by: Girma Talley M.D. 11/11/2019 1:03 PM ECG Data Attestation: I personally reviewed and interpreted this ECG as follows: Indication: back/shoulder pain Rate (beats per minute): 88 Rhythm: normal sinus Findings: no ST depression, no T-wave inversion, no ST elevation, no acute ischemic change and no ectopy Comparison ECG Date: from (11/11/2017) Change: no significant change Blood Pressure Blood Pressure Findings: Elevated blood pressure Blood Pressure Disposition: elevated BP felt to be situational MDM Narrative This 54-year-old female patient presents the emergency department today for evaluation of left flank pain which came on suddenly overnight. The patient has also been experiencing bilateral lower extremity edema, which is subjective and not appreciated on examination at this time. This is been ongoing for approximately 2 months. The pain is somewhat pleuritic in nature with increased pain with deep breathing. The pain radiates from the left flank down into the left pelvis and up into the left shoulder and neck. Initial concern given the location and history was for nephrolithiasis. CT of the abdomen/pelvis with no acute intra-abdominal pathology. Work-up here in the ED without evidence of UTI or hematuria. D-dimer elevated greater than 3000. At this time, I was concerned for possible PE. CT angiogram of the chest completed and was consistent with acute pulmonary emboli in the segmental and subsegmental pulmonary arteries of the bilateral lower lobes. No CT evidence of right heart strain. There was also trace left pleural effusion. Given the patient's history of MS and hypertension, inpatient management at this time recommended. The patient will be admitted to the [facility] hospitalist service. Please see hospitalist dictation regarding ongoing management care of this patient. The chart was completed utilizing [employer] Speech voice recognition software. Grammatical errors, random word insertions, pronoun errors, and incomplete se ntences are an occasional consequence of this system due to software limitations, ambient noise, and hardware issues. Any formal questions or concerns about the content, text, or information contained within the body of this dictation should be directly addressed to the provider for clarification. Impression & Plan Pulmonary emboli, HTN (hypertension), Multiple sclerosis, Flank pain Critical Care Time Critical Care Time: Yes Total Critical Care Time: 45 I have personally spent 45 minutes of critical care time in the direct management of this patient to assess and manage high likelihood of life- threatening pulmonary emboli. This includes bedside care, interpretation of diagnostic studies, and testing, discussion with consultants, patient, and family members, documentation time, and other required patient management activities. This 45 minutes is in excess of all separately billable procedures. Discharge Plan Visit Data Chief Complaint: Flank Pain Stated Complaint: KIDNEY PAIN - SHARP STABBING FEELING ED Provider: [facility] Midlevel Provider: Kyara Salazar Discharge Problem: Pulmonary emboli, HTN (hypertension), Multiple sclerosis, Flank pain Patient Disposition: Admitted As Inpatient Condition: Good Forms Stand Alone Forms: My [facility] [place] Prescriptions Prescriptions: No Action etodolac 500 mg Tablet Extended Release 24 Hr 1,000 mg PO DAILY RF: 0 pantoprazole [Protonix] 40 mg Tablet,Delayed Release (Dr/Ec) 40 mg PO DAILY RF: 0 losartan 25 mg Tablet 12.5 mg PO DAILY RF: 0 Glucosamine Chondroitin PLUS [id number] mg Capsule 2 tab PO QPM RF: 0 melatonin 300 mcg Tablet 0.3 mg PO HS PRN (Reason: Sleep) RF: 0 hydrocortisone acetate 25 mg suppository 25 mg OR BID PRN (Reason: Hemorrhoids) RF: 0 Nitro-Bid 2 % ointment 500 mg topical BID PRN (Reason: Hemorrhoids) RF: 0 furosemide 20 mg tablet 20 mg PO DAILY PRN (Reason: Fluid Retention) RF: 0 Referrals Referrals: Prem Moreno MD [Primary Care Provider] - Discharge Problem: Pulmonary emboli Qualifiers: Pulmonary embolism type: unspecified Chronicity: acute Acute cor pulmonale presence: without acute cor pulmonale Qualified Code(s): I26.99 - Other pulmonary embolism without acute cor pulmonale HTN (hypertension) Qualifiers: Hypertension type: unspecified Qualified Code(s): I10 - Essential (primary) hypertension
[2019-11-11 12:05] LABS: Basophils # (auto) 0.01 K/uL (0-0.2); Basophils % (auto) 0.1 %; Eosinophils # (auto) 0.03 K/uL (0-0.5); Eosinophils % (auto) 0.3 %; Hematocrit (blood only) 42.3 % (37-47); Hemoglobin 14.2 g/dL (12.0-16.0); Immature Granulocytes # (auto) 0.03 K/uL (0.00-0.02); Immature Granulocytes % (auto) 0.3 %; Lymphocytes # (auto) 1.14 K/uL (1.2-3.4); Lymphocytes % (auto) 12.2 %; Mean Corpuscular Hemoglobin 30.5 pg (25-34); Mean Corpuscular Hgb Conc 33.6 g/dL (32-36); Mean Platelet Volume 9.7 fL (7.4-10.4); Monocytes % (auto) 7.5 %; Neutrophils % (auto) 79.6 %; Platelet Count 235 K/uL (130-400); RDW Coefficient of Variation 12.9 % (11.5-14.5); RDW Standard Deviation 42.7 fL (36.4-46.3); Red Blood Count 4.65 M/uL (4.2-5.4); White Blood Count 9.31 K/uL (4.8-10.8)
[2019-11-11 12:14] LABS: Partial Thromboplastin Ratio 0.9; Partial Thromboplastin Time 25.2 Seconds (21.0-31.0); Prothrombin Time 10.9 Seconds (9.0-12.0)
[2019-11-11 12:14] LABS: Appearance Urine Turbid (Clear); Bacteria Urine Automated Negative (Negative); Bilirubin Urine Negative (Negative); Blood Urine Negative (Negative); Color Urine Dark Yellow; Epithelial Cell Urine Auto >30 /lpf (0-5); Glucose Urine UA Negative (Negative); Ketones Urine Trace (Negative); Leukocyte Esterase Urine Negative (Negative); Nitrite Urine Negative (Negative); Protein Urine Negative (Negative); RBC Urine Automated >30 /hpf (0-4); Specific Gravity Urine 1.027 (1.000-1.030); Urobilinogen Urine Negative (Negative)
--- NOTE | 2019-11-11 12:14 | CT Scan Report ---
CT abd pelvis wo con CLINICAL HISTORY: 54 years-old Female presenting with left flank pain. TECHNIQUE: Multidetector CT of the abdomen and pelvis was performed without the use of intravenous co ntrast. IV contrast: None. One or more dose lowering techniques were used consistent with the princip les of ALARA (as low as reasonably achievable), including automatic exposure control, mA or kV adjust ment to individual patient size, and/or use of iterative reconstruction. COMPARISON: 11/11/2017. CT DOSE (mGy.cm): The estimated cumulative dose is 827.76 mGy.cm. FINDINGS: Staff Counselor topogram: Unremarkable. Lung bases: Normal heart size. Coronary artery calcification. Trace left pleural effusion. Minimal de pendent changes likely atelectasis. Liver: Normal morphology. Normal density. Biliary: No gross biliary ductal dilatation allowing for noncontrast technique. Normal gallbladder. Pancreas: Normal noncontrast appearance. Spleen: Normal noncontrast appearance. Adrenal glands: Normal noncontrast appearance. Kidneys and ureters: Normal noncontrast appearance. No nephrolithiasis. No hydronephrosis. Normal ure ters. Bladder: Incompletely evaluated secondary to underdistention. Pelvic organs: Normal noncontrast appearance. Bowel: The appendix is absent. No bowel obstruction. Peritoneal cavity: No free fluid or intraperitoneal gas. Lymph nodes: No gross lymphadenopathy allowing for noncontrast technique. Vasculature: Normal noncontrast appearance. Abdominal wall: Small fat-containing umbilical hernia. Musculoskeletal: Degenerative changes of the spine. Advanced degenerative changes of the left hip. Le sser degenerative changes of the right hip. IMPRESSION: 1. Allowing for noncontrast technique, no acute intra-abdominal pathology. ACT 112: Negative or not required by law. Electronically signed by: Girma Talley M.D. 11/11/2019 12:12 PM
[2019-11-11 12:17] LABS: D Dimer 3540 ug/L FEU (0-500)
[2019-11-11 12:18] LABS: Aspartate Aminotransferase 14 U/L (15-37); BUN Creatinine Ratio 13.4 (10-20); Blood Urea Nitrogen 13 mg/dl (7-18); Calcium 9.2 mg/dl (8.5-10.1); Carbon Dioxide 27 mmol/L (21-32); Chloride 105 mmol/L (98-107); Creatinine Clr Calc Pharmacy 71.3 ml/min; Est GFR (African American) 80.8; Est GFR (Non-African American) 69.8; Glucose 102 mg/dl (70-99); Lipase 126 U/L (73-393); Potassium 3.6 mmol/L (3.5-5.1); Sodium 139 mmol/L (136-145)
[2019-11-11 12:23] LABS: Alanine Aminotransferase 21 U/L (12-78); Albumin Globulin Ratio 0.9 (0.9-2); Alkaline Phosphatase 95 U/L (45-117); Bilirubin,Total 0.6 mg/dl (0.2-1); Globulin 4.6 gm/dl (2.5-4.0); Total Protein 8.6 gm/dl (6.4-8.2); Troponin I < 0.015 ng/ml (0-0.045)
[2019-11-11] MEDS ORDERED: OPTIRAY 320 125ml IV PRN (12:51)
--- NOTE | 2019-11-11 13:04 | CT Scan Report ---
CT angio chest PE protocol CLINICAL HISTORY: 54 years-old Female presenting with pleuritic chest pain, elevated d-dimer, left fl ank pain, shortness of breath. TECHNIQUE: Multidetector CT angiography of the chest was performed after administration of intravenou s contrast. 3-D volumetric and/or maximum intensity projection (MIP) images were subsequently reconst ructed for review. IV contrast: 120 mL of Optiray 320. One or more dose lowering techniques were used consistent with the principles of ALARA (as low as reasonably achievable), including automatic expos ure control, mA or kV adjustment to individual patient size, and/or use of iterative reconstruction. COMPARISON: 03/19/2015. CT DOSE (mGy.cm): The estimated cumulative dose is 485.49 mGy.cm. FINDINGS: Salvage Engineer topogram: Unremarkable. Pulmonary vasculature: The study is suboptimal for the assessment of the pulmonary vascular tree secondary to timing of the contrast bolus. Scattered segmental and subsegmental acute pulmonary emboli predominantly in the lowe r lobes. Main pulmonary artery is not enlarged. No flattening of the interventricular septum. No intr acardiac filling defect. No reflux of contrast into the hepatic veins. Remaining chest: Soft tissues: Normal thyroid and thoracic inlet. No axillary, supraclavicular, mediastinal, or hilar lymphadenopathy. 4 vessel aortic arch. Normal heart size. Coronary artery calcification. Trace left p leural effusion. Upper abdomen normal. Lungs and airways: No pneumothorax. Central airways patent. Pulmonary arteries are not significantly enlarged relative to adjacent bronchi. No interlobular septal thickening. Minimal dependent groundgla ss opacity in the left lower lobe. Musculoskeletal: Normal osseous structures. IMPRESSION: 1. Acute pulmonary emboli in segmental and subsegmental pulmonary arteries in the lower lobes. No CT evidence of right heart strain. 2. Minimal dependent groundglass opacity in the left lower lobe, possibly atelectasis versus hemorrh age. 3. Trace left pleural effusion is likely reactive. The report will be called/faxed according to standard departmental protocol for a critical finding. ACT 112: Negative or not required by law. Electronically signed by: Girma Talley M.D. 11/11/2019 1:03 PM
[2019-11-11] MEDS ORDERED: HEPARIN SOD 5,000 UNIT/0.5 ML VIAL ONE (13:55)
[2019-11-11] MEDS: HEPARIN SODIUM/DEXTROSE 25,000 UNITS/500 ML BAG IV SCH (14:02)
[2019-11-11] MEDS ORDERED: METOPROLOL TARTRATE 1 MG/ML VIAL IV STA (14:52)
[2019-11-11] MEDS ORDERED: WARFARIN SOD 5 MG TAB PO ONE (14:57)
--- NOTE | 2019-11-11 15:14 | History & Physical Report ---
Date of Service November 11, 2019 Assessment & Plan (1) Acute pulmonary embolism without acute cor pulmonale: MULTIPLE SCLEROSIS -Patient with multiple sclerosis and she notes recent hip pains leading to less activity than usual and was found to have ACUTE PULMONARY EMBOLISM WITHOUT COR PULMONALE -Patient presented with left flank pain with radiation up into left back/neck. DDimer elevated. CTA chest showed B/L acute pulmonary emboli without signs of right heart strain. Admit to Med/Surg with tele. Patient started on Heparin in the ED. Continue Heparin. (2) Flank pain: Patient noted to have possible atelectasis vs small hemorrhage below left-sided PE's. Will therefore start Coumadin as well for anticoag. Continue Tylenol PRN mild pain. Discontinue home NSAIDS. Avoid NSAIDS and ASA. Currently saturating well on room air. Zofran PRN nausea (3) HTN (hypertension): BP very elevated on admission. Possibly due to pain? Uncertain. Labetolol pushed in the ED. Continue hydralazine 10 mg TID starting tomorrow. (4) DVT prophylaxis: On heparin, Coumadin History of Present Illness Chief Complaint: Left flank pain/back pain Primary Care Provider: Prem Moreno MD Patient is a 54 you female with history of MS and HTN who presented to the ED with left flank pain x 1 day radiating into her left upper back and left neck. She states that last night, she started to have sharp, stabbing pain in her left lower back/flank area. She thought that maybe she had a kidney stone or UTI though she has never had a stone. She noted that taking a deep breath makes the pain worse. She did feel slightly SOB last night but not now or this morning. The pain was persistent since last night. She has also had heaviness/weakness in her legs for a few weeks. 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 She has not noted any edema out of the ordinary. She was given Lasix to try PRN by her PCP which she took twice and didn't notice a big difference. She has also had some lightheadedness for a few weeks that sometimes makes her feel like she needs to sit down. She does have nausea today which she is attributing to the pain. She has been slightly more sedentary recently due to her legs aching, but she hasn't had any extended period of time where she would have been sitting or immobile. She does not have any personal history of blood clots. She has an extensive family history of clotting, but no clotting disorders specifically. Upon admission, CT Abd/Pelvis completed and negative for stones. Urine showed >30 RBCs but otherwise was unremarkable. Renal fxn normal. WBC count normal. DDimer was elevated, and CTA Chest showed B/L lower lobe PE's with possible LLL atelectasis vs small hemorrhage. BP noted to be severely elevated on admission as well up to 186/101. Allergies Allergy/AdvReac Type Severity Reaction Status Date / Time propoxyphene AdvReac Unknown UPSET Verified 11/11/19 13:48 STOMACH FROM DARVOCET Home Medications Home Medications Medication Instructions Recorded Confirmed Type etodolac 1,000 mg PO DAILY 07/17/18 11/11/19 History [id number]-st 2 tab PO QPM 07/17/18 11/11/19 History [Glucosamine Chondroitin PLUS] losartan 12.5 mg PO DAILY 07/17/18 11/11/19 History pantoprazole [Protonix] 40 mg PO DAILY 07/17/18 11/11/19 History furosemide 20 mg PO DAILY PRN 11/11/19 11/11/19 History hydrocortisone acetate 25 mg UT BID PRN 11/11/19 11/11/19 History melatonin 0.3 mg PO HS PRN 11/11/19 11/11/19 History nitroglycerin [Nitro-Bid] 500 mg TOPICAL BID PRN 11/11/19 11/11/19 History Past Med/Surg History Medical History (Updated 11/11/19 @ 15:24 by Paulina Levy PA-C) Acute pulmonary embolism without acute cor pulmonale HTN (hypertension) (Chronic) Multiple sclerosis (Chronic) Surgical History S/P appendectomy (Resolved) S/P S/P dilation and curettage (Resolved) S/P endometrial ablation (Resolved) S/P sinus surgery (Resolved) S/P tubal ligation (Resolved) Family History (Updated 11/11/19 @ 15:22 by Paulina Levy PA-C) Mother Pulmonary embolism IVC Filter, unclear etiology Myocardial infarction x2 Stroke Father Myocardial infarction, Onset Age: 50 from [place] Brother Myocardial infarction Diabetes Sister Diabetes Social History Preferred Language: Kyrgyz Communication Ability: Effective Investigation Division Sergeant Required: No Beliefs That Will Affect Care: None marital status: Current Living Situation: Spouse current occupational status: employed Other Information That Helps Us Care for You: No Feels Safe at Home: Yes Safety Concerns: Feels Safe At This Time Smoking Status: Never smoker Do You Dip or Chew Tobacco: No ; Second Hand Exposure: No ; Tobacco Cessation Education Requested by Patient: No Hx Alcohol Use: Yes Hx Substance Use: No Review of Systems Review of Systems: All systems reviewed & are unremarkable except as noted in HPI & below Physical Exam Constitutional: WD/WN, vitals as above Eyes: PERRL, conjunctivae normal, anicteric sclerae ENMT: external ear and nose normal, oropharynx normal Neck: trachea midline, no thyromegaly Respiratory: normal respiratory effort, lungs clear to auscultation Tenderness of the left lower ribs/lateral rib Cardiovascular: RRR, no murmur, no edema Gastrointestinal (Abdomen): normal bowel sounds, soft, nontender, no h epatosplenomegaly Musculoskeletal: no cyanosis or clubbing, extremities motor strength 5/5 Head/Neck/Chest: normocephalic and head atraumatic Skin: no rashes, warm and dry Psychiatric: A+Ox3, euthymic affect Results & Data Results & Data ([facility]) Vital Signs (Past 12 Hours) Vital Signs Pulse Resp BP Pulse Ox 11/11/19 12:14 76 23 187/89 H 95 11/11/19 11:51 97 11/11/19 11:02 166/100 H Laboratory Results Laboratory Results - last 24 hr 11/11/19 11/11/19 11/11/19 11:30 11:30 11:45 WBC 9.31 RBC 4.65 Hgb 14.2 Hct 42.3 MCV 91.0 MCH 30.5 MCHC 33.6 RDW Std Deviation 42.7 RDW Coeff of [place] 12.9 Plt Count 235 MPV 9.7 Immature Gran % (Auto) 0.3 Neut % (Auto) 79.6 Lymph % (Auto) 12.2 Bertie % (Auto) 7.5 Eos % (Auto) 0.3 Baso % (Auto) 0.1 Immature Gran # (Auto) 0.03 H Neut # (Auto) 7.40 H Lymph # (Auto) 1.14 L Bertie # (Auto) 0.70 H Eos # (Auto) 0.03 Baso # (Auto) 0.01 PT INR APTT PTT Ratio D-Dimer Sodium Potassium Chloride Carbon Dioxide Anion Gap BUN Creatinine Est Cr Clr Drug Dosing Est GFR ( Amer) Est GFR (Non-Af Amer) BUN/Creatinine Ratio Glucose Calcium Total Bilirubin AST ALT Alkaline Phosphatase Troponin I Total Protein Albumin Globulin Albumin/Globulin Ratio Lipase Urine Color Dark Yellow Urine Appearance Turbid A Urine pH 5.0 Ur Specific [place] 1.027 Urine Protein Negative Urine Glucose (UA) Negative Urine Ketones Trace H Urine Blood Negative Urine Nitrite Negative Urine Bilirubin Negative Urine Urobilinogen Negative Ur Leukocyte Esterase Negative Urine WBC (Auto) 1-5 Urine RBC (Auto) >30 H U Hyaline Cast (Auto) 1-5 U Epithel Cells (Auto) >30 H Urine Bacteria (Auto) Negative POC Ur Test NEG 11/11/19 11/11/19 11:45 11:45 WBC RBC Hgb Hct MCV MCH MCHC RDW Std Deviation RDW Coeff of [place] Plt Count MPV Immature Gran % (Auto) Neut % (Auto) Lymph % (Auto) Bertie % (Auto) Eos % (Auto) Baso % (Auto) Immature Gran # (Auto) Neut # (Auto) Lymph # (Auto) Bertie # (Auto) Eos # (Auto) Baso # (Auto) PT 10.9 INR 1.0 APTT 25.2 PTT Ratio 0.9 D-Dimer 3540 H* Sodium 139 Potassium 3.6 Chloride 105 Carbon Dioxide 27 Anion Gap 7.0 BUN 13 Creatinine 0.94 Est Cr Clr Drug Dosing 71.3 Est GFR ( Amer) 80.8 Est GFR (Non-Af Amer) 69.8 BUN/Creatinine Ratio 13.4 Glucose 102 H Calcium 9.2 Total Bilirubin 0.6 AST 14 L ALT 21 Alkaline Phosphatase 95 Troponin I < 0.015 Total Protein 8.6 H Albumin 4.0 Globulin 4.6 H Albumin/Globulin Ratio 0.9 Lipase 126 Urine Color Urine Appearance Urine pH Ur Specific [place] Urine Protein Urine Glucose (UA) Urine Ketones Urine Blood Urine Nitrite Urine Bilirubin Urine Urobilinogen Ur Leukocyte Esterase Urine WBC (Auto) Urine RBC (Auto) U Hyaline Cast (Auto) U Epithel Cells (Auto) Urine Bacteria (Auto) POC Ur Test Diagnostic Findings Chest CTA: IMPRESSION: 1. Acute pulmonary emboli in segmental and subsegmental pulmonary arteries in the lower lobes. No CT evidence of right heart strain. 2. Minimal dependent groundglass opacity in the left lower lobe, possibly atelectasis versus hemorrhage. 3. Trace left pleural effusion is likely reactive. Chest X-Ray: IMPRESSION: No acute process. Abd/Pelvis CT WO: IMPRESSION: 1. Allowing for noncontrast technique, no acute intra-abdominal pathology. Code Status & VTE Plan VTE Prophylaxis Plan VTE Prophylaxis will be ordered: No Supervising Physician Co-Signing Physician Notes I, Dr. David Thompson, have seen and examined the patient Cherry Mayes with physician oceanographer assistant and would like to comment that On Physical Exam General: no acute distress, speaks in full sentences Lungs: no wheezing, clear to auscultation Back: left posterior rib area tenderness of the right side, no ecchymosis Heart: regular rate Abdomen soft, nontender, positive bowel sounds Extremities: moves all extremities ASSESSMENT AND PLAN: ACUTE PULMONARY EMBOLISM WITHOUT COR PULMONALE MULTIPLE SCLEROSIS HYPERTENSION LEFT FLANK PAIN -Patient with multiple sclerosis and she notes recent hip pains leading to less activity than usual and was found to have ACUTE PULMONARY EMBOLISM WITHOUT COR PULMONALE; start on IV heparin in the ED; and start warfarin 5mg daily as patient reports rectal bleed in the distant past because of aspirin for hypertension; plan to continue heparin with warfarin until INR is 2 to 3; pain medication prn for pleuritic pain from pulmonary embolism (may be possible of left lower lobe ground glass as hemorrhage but more likely atelectasis); give incentive spirometer -Hypertension: patient advised to avoid aspirin (also avoid NSAIDs) while on systemic anticoagulation, continue home dose losartan in the ED, 1 dose of labetalol IV given in ED because of systolic blood pressure of 180, and then give oral hydralazine prn. Monitor blood pressure to differential pain mediated elevation of blood pressure versus poorly controlled essential hypertension -agree with other assessment and plans as per physician oceanographer assistant -My colleague Dr. Tay will be taking over the care of the patient as hospitalist starting on 11/12/2019 (1) HTN (hypertension) Hypertension type: unspecified Qualified Code(s): I10 - Essential (primary) hypertension
[2019-11-11] MEDS ORDERED: ALUMINUM/MAGNESIUM SUSP 30 ML UDC PO PRN (16:29)
[2019-11-11] MEDS ORDERED: OXYCODONE HCL SOLN 5 MG/5 ML UDC PO PRN (16:29)
[2019-11-11] MEDS: ACETAMINOPHEN 325 MG TAB PO PRN ×2 (16:43→23:44)
--- NOTE | 2019-11-11 17:22 | Electrocardiogram Report ---
Test Reason : Blood Pressure : / mmHG Vent. Rate : 088 BPM Atrial Rate : 088 BPM P-R Int : 144 ms QRS Dur : 084 ms QT Int : 370 ms P-R-T Axes : 049 007 049 degrees QTc Int : 447 ms Normal sinus rhythm Possible Left atrial enlargement Borderline ECG When compared with ECG of 11-NOV-2017 16:17, No significant change was found Confirmed by Dwight Moore ([id number]) on 11/11/2019 5:22:24 PM Referred By: REFERRED SELF Confirmed By:Dwight Moore
[2019-11-11 20:36] LABS: Partial Thromboplastin Ratio 2.1
[2019-11-11 20:39] LABS: Partial Thromboplastin Time 57.4 Seconds (21.0-31.0)
[2019-11-11] MEDS: ONDANSETRON INJ 2 MG/ML 2 ML VIAL IV PRN (21:16)
[2019-11-11] MEDS: HYDROmorphone INJ 0.5 MG/0.5 ML SYR IV PRN (21:16)
[2019-11-11] MEDS: HydrALAZINE 10 MG TAB PO SCH (21:16)
[2019-11-12] MEDS: OXYCODONE HCL IR 5 MG TAB (IMMEDIATE RELEASE) PO PRN ×3 (03:07→21:41)
[2019-11-12 06:18] LABS: Hematocrit (blood only) 38.8 % (37-47); Hemoglobin 12.8 g/dL (12.0-16.0); Mean Corpuscular Hemoglobin 30.4 pg (25-34); Mean Corpuscular Volume 92.2 fL (80-100); Mean Platelet Volume 9.5 fL (7.4-10.4); Platelet Count 210 K/uL (130-400); RDW Standard Deviation 43.8 fL (36.4-46.3); Red Blood Count 4.21 M/uL (4.2-5.4); White Blood Count 8.56 K/uL (4.8-10.8)
[2019-11-12 06:29] LABS: INR 1.1 (0.9-1.1); Prothrombin Time 11.2 Seconds (9.0-12.0)
[2019-11-12 06:49] LABS: BUN Creatinine Ratio 12.7 (10-20); Calcium 8.6 mg/dl (8.5-10.1); Creatinine Clr Calc Pharmacy 72.8 ml/min; Est GFR (Non-African American) 71.6; Potassium 3.7 mmol/L (3.5-5.1)
[2019-11-12 07:38] LABS: Partial Thromboplastin Ratio 1.6; Partial Thromboplastin Time 44.4 Seconds (21.0-31.0)
[2019-11-12] MEDS: HydrALAZINE 10 MG TAB PO SCH ×3 (08:36→21:16)
[2019-11-12] MEDS: PANTOprazole 40 MG TAB PO SCH (08:37)
[2019-11-12] MEDS: LOSARTAN POTASSIUM 25 MG TAB PO SCH (08:37)
[2019-11-12] MEDS: HYDROmorphone INJ 0.5 MG/0.5 ML SYR IV PRN (11:44)
[2019-11-12] MEDS: HEPARIN SODIUM/DEXTROSE 25,000 UNITS/500 ML BAG IV SCH (12:31)
[2019-11-12 14:58] LABS: Partial Thromboplastin Ratio 1.9
[2019-11-12 15:07] LABS: Partial Thromboplastin Time 53.1 Seconds (21.0-31.0)
[2019-11-12] MEDS: ACETAMINOPHEN 325 MG TAB PO PRN (15:37)
[2019-11-12] MEDS: ONDANSETRON INJ 2 MG/ML 2 ML VIAL IV PRN (15:38)
[2019-11-12] MEDS ORDERED: WARFARIN SOD 5 MG TAB PO SCH (16:00)
--- NOTE | 2019-11-12 19:41 | Hospitalist Progress Note ---
Date of Service November 12, 2019 Assessment & Plan (1) Acute pulmonary embolism without acute cor pulmonale: CTA chest showed B/L acute pulmonary emboli without signs of right heart strain. lower extremity doppler negative for DVT started on IV heparin wt based protocol , coumadin so far has been tolerating anticoagulation ok , MULTIPLE SCLEROSIS - (2) Flank pain: symptoms has resolved CT abdomen /pelvis : no renal or ureteric stone noted (3) HTN (hypertension): BP stable (4) DVT prophylaxis: On IV heparin, Coumadin DISPOSITION : will be discharged home when medically stable Admission and Anticipated Discharge Date Admission Date: November 11, 2019 Subjective no complain of SOB , no hypoxia still having pluritic chest pain , improved since yesterday no cough or fever or chills no bleeding complication Review of Systems Review of Systems: All systems reviewed & are unremarkable except as noted in HPI & below Respiratory: + dyspnea and + pain with cough; no cough Physical Exam Constitutional: WD/WN, vitals as above no acute distress Eyes: PERRL, conjunctivae normal, anicteric sclerae ENMT: external ear and nose normal, oropharynx normal Neck: trachea midline, no thyromegaly Respiratory: normal respiratory effort, lungs clear to auscultation Cardiovascular: RRR, no murmur, no edema Gastrointestinal (Abdomen): normal bowel sounds, soft, nontender, no hepatosplenomegaly Musculoskeletal: no cyanosis or clubbing, extremities motor strength 5/5 Skin: no rashes, warm and dry Neurologic: PERRL, EOMI, accommodation nl, no face palsy, no dysarthria Psychiatric: A+Ox3, euthymic affect Results & Data Results & Data ([facility]) Vital Signs (Past 12 Hours) Vital Signs Temp Pulse Resp BP Pulse Ox 11/12/19 19:25 37.4 C 86 18 124/73 92 11/12/19 15:01 37.7 C H 115 H 18 153/78 H 95 11/12/19 11:37 36.9 C 92 H 22 158/90 H 91 (1) HTN (hypertension) Hypertension type: unspecified Qualified Code(s): I10 - Essential (primary) hypertension
--- NOTE | 2019-11-12 21:09 | Ultrasound Report ---
ULTRASOUND BILATERAL LOWER EXTREMITY VENOUS CLINICAL HISTORY: Pulmonary emboli. Leg pain. COMPARISON STUDY: Left lower extremity venous ultrasound dated 12/23/2017. TECHNIQUE: Real-time, grayscale, and color Doppler sonography of the deep veins of the right and left lower extremity was performed from the inguinal crease to the calf. Compression and augmentation wer e utilized. FINDINGS: There is no sonographic evidence of deep venous thrombosis identified in the right or left lower extremity. The common femoral, superficial femoral, and popliteal veins are patent and normally compressible bilaterally. The greater saphenous vein and the profunda femoris vein at the junction w ith the common femoral vein are clear in both legs. The visualized calf veins are patent bilaterally. IMPRESSION: There is no sonographic evidence of deep venous thrombosis identified in the right or lef t lower extremity. ACT 112: Negative or not required by law. Electronically signed by: Carroll Urena M.D. 11/12/2019 9:08 PM
[2019-11-13 07:12] LABS: INR 1.2 (0.9-1.1); Partial Thromboplastin Ratio 3.2; Prothrombin Time 12.8 Seconds (9.0-12.0)
[2019-11-13 07:19] LABS: Partial Thromboplastin Time 90.1 Seconds (21.0-31.0)
[2019-11-13] MEDS: HEPARIN SODIUM/DEXTROSE 25,000 UNITS/500 ML BAG IV SCH (08:01)
[2019-11-13] MEDS: PANTOprazole 40 MG TAB PO SCH (09:20)
[2019-11-13] MEDS: HydrALAZINE 10 MG TAB PO SCH (09:20)
[2019-11-13] MEDS: LOSARTAN POTASSIUM 25 MG TAB PO SCH (09:20)
[2019-11-13] MEDS ORDERED: NITROGLYCERIN 2% OINTMENT 30GM TUBE EXT PRN (09:51)
[2019-11-13] MEDS ORDERED: FUROSEMIDE 20 MG TAB PO PRN (09:51)
[2019-11-13] MEDS ORDERED: MELATONIN 3 MG TAB PO PRN (09:51)
[2019-11-13] MEDS ORDERED: HYDROCORTISONE ACETATE 25 MG SUPP PR PRN (09:51)
[2019-11-13] MEDS: APIXABAN 5 MG TABLET PO SCH ×2 (09:54→20:08)
[2019-11-13] MEDS: POLYETHYLENE (MIRALAX) 17 GM PACK PO SCH (10:45)
[2019-11-13] MEDS: HYDROCORTISONE ACETATE 25 MG SUPP PR SCH ×2 (14:23→20:09)
[2019-11-13 14:41] LABS: Partial Thromboplastin Ratio 1.2; Partial Thromboplastin Time 32.2 Seconds (21.0-31.0)
--- NOTE | 2019-11-13 18:51 | Hospitalist Progress Note ---
Date of Service November 13, 2019 Assessment & Plan (1) Acute pulmonary embolism without acute cor pulmonale: CTA chest showed B/L acute pulmonary emboli without signs of right heart strain. lower extremity doppler negative for DVT was treated with IV heparin wt based protocol , coumadin changed to Eliquis -discussed with patient hx of hemorroids -no bright red blood per rectum so far MULTIPLE SCLEROSIS -stable follows with neurology (2) Flank pain: symptoms has resolved CT abdomen /pelvis : no renal or ureteric stone noted (3) HTN (hypertension): BP stable (4) DVT prophylaxis: eliqus DISPOSITION : will be discharged home in am Admission and Anticipated Discharge Date Admission Date: November 11, 2019 Subjective feeling much better today no complain of SOB minimum pleuritic chest pain no fever or chills Physical Exam Constitutional: WD/WN, vitals as above no acute distress Eyes: PERRL, conjunctivae normal, anicteric sclerae ENMT: external ear and nose normal, oropharynx normal Neck: trachea midline, no thyromegaly Respiratory: normal respiratory effort, lungs clear to auscultation Cardiovascular: RRR, no murmur, no edema Gastrointestinal (Abdomen): normal bowel sounds, soft, nontender, no hepatosplenomegaly Musculoskeletal: no cyanosis or clubbing, extremities motor strength 5/5 Skin: no rashes, warm and dry Neurologic: PERRL, EOMI, accommodation nl, no face palsy, no dysarthria Psychiatric: A+Ox3, euthymic affect Results & Data Results & Data ([facility]) Vital Signs (Past 12 Hours) Vital Signs Temp Pulse Resp BP Pulse Ox 11/13/19 15:00 37.0 C 82 18 113/81 93 (1) HTN (hypertension) Hypertension type: unspecified Qualified Code(s): I10 - Essential (primary) hypertension
[2019-11-13] MEDS: DOCUSATE SODIUM 100 MG CAP PO SCH (20:07)
[2019-11-13] MEDS: OXYCODONE HCL IR 5 MG TAB (IMMEDIATE RELEASE) PO PRN (22:16)
[2019-11-14 07:45] LABS: INR 1.3 (0.9-1.1); Partial Thromboplastin Ratio 1.2; Partial Thromboplastin Time 32.6 Seconds (21.0-31.0); Prothrombin Time 13.2 Seconds (9.0-12.0)
[2019-11-14] MEDS: DOCUSATE SODIUM 100 MG CAP PO SCH (08:11)
[2019-11-14] MEDS: HYDROCORTISONE ACETATE 25 MG SUPP PR SCH (08:12)
[2019-11-14] MEDS: LOSARTAN POTASSIUM 25 MG TAB PO SCH (08:12)
[2019-11-14] MEDS: PANTOprazole 40 MG TAB PO SCH (08:12)
[2019-11-14] MEDS: POLYETHYLENE (MIRALAX) 17 GM PACK PO SCH (08:13)
[2019-11-14] MEDS: APIXABAN 5 MG TABLET PO SCH (08:13)
--- NOTE | 2019-11-14 12:43 | Hospitalist Progress Note ---
Date of Service November 14, 2019 Assessment & Plan (1) Acute pulmonary embolism without acute cor pulmonale: CTA chest showed B/L acute pulmonary emboli without signs of right heart strain. lower extremity Doppler negative for DVT started on Eliquis pt has been non sedentary lately for past few weeks , possible provoked episode ? will benefit with out patient hypercoagulable work up to determine duration of anti coagulation hx of hemorroids -no bright red blood per rectum so far pt is counselled regarding bleeding risk , notify family physician with any evidence of GI bleed : bleeding per rectum , dark stool avoid antiplatelets and MULTIPLE SCLEROSIS -stable follows with neurology (2) Flank pain: symptoms has resolved CT abdomen /pelvis : no renal or ureteric stone noted (3) HTN (hypertension): BP stable (4) DVT prophylaxis: eliqus DISPOSITION : discharge home today Admission and Anticipated Discharge Date Admission Date: November 11, 2019 Subjective no complain of chest pain feels fine no shortness of breath or KINNEY stable to be discharge home Review of Systems Review of Systems: All systems reviewed & are unremarkable except as noted in HPI & below Physical Exam Constitutional: WD/WN, vitals as above no acute distress Eyes: PERRL, conjunctivae normal, anicteric sclerae ENMT: external ear and nose normal, oropharynx normal Neck: trachea midline, no thyromegaly Respiratory: normal respiratory effort, lungs clear to auscultation Cardiovascular: RRR, no murmur, no edema Gastrointestinal (Abdomen): normal bowel sounds, soft, nontender, no hepatosplenomegaly Musculoskeletal: no cyanosis or clubbing, extremities motor strength 5/5 Skin: no rashes, warm and dry Neurologic: PERRL, EOMI, accommodation nl, no face palsy, no dysarthria Psychiatric: A+Ox3, euthymic affect Results & Data Results & Data ([facility]) Vital Signs (Past 12 Hours) Vital Signs Temp Pulse Resp BP Pulse Ox 11/14/19 12:29 36.8 C 89 18 94 11/14/19 07:10 36.8 C 89 18 157/95 H 94 (1) HTN (hypertension) Hypertension type: unspecified Qualified Code(s): I10 - Essential (primary) hypertension
--- NOTE | 2019-11-14 13:03 | Discharge Summary ---
Date of Service November 14, 2019 Admission HPI Per Admitting Provider Patient is a 54 you female with history of MS and HTN who presented to the ED with left flank pain x 1 day radiating into her left upper back and left neck. She states that last night, she started to have sharp, stabbing pain in her left lower back/flank area. She thought that maybe she had a kidney stone or UTI though she has never had a stone. She noted that taking a deep breath makes the pain worse. She did feel slightly SOB last night but not now or this morning. The pain was persistent since last night. She has also had heaviness/weakness in her legs for a few weeks. 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 She has not noted any edema out of the ordinary. She was given Lasix to try PRN by her PCP which she took twice and didn't notice a big difference. She has also had some lightheadedness for a few weeks that sometimes makes her feel like she needs to sit down. She does have nausea today which she is attributing to the pain. She has been slightly more sedentary recently due to her legs aching, but she hasn't had any extended period of time where she would have been sitting or immobile. She does not have any personal history of blood clots. She has an extensive family history of clotting, but no clotting disorders specifically. Upon admission, CT Abd/Pelvis completed and negative for stones. Urine showed >30 RBCs but otherwise was unremarkable. Renal fxn normal. WBC count normal. DDimer was elevated, and CTA Chest showed B/L lower lobe PE's with possible LLL atelectasis vs small hemorrhage. BP noted to be severely elevated on admission as well up to 186/101. Principal Diagnosis PULMONARY EMBOLISM /BLOOD CLOT IN LUNGS Discharge Exam Constitutional WD/WN, vitals as above no acute distress Eyes PERRL, conjunctivae normal, anicteric sclerae ENMT external ear and nose normal, oropharynx normal Neck trachea midline, no thyromegaly Respiratory normal respiratory effort, lungs clear to auscultation Cardiovascular RRR, no murmur, no edema Gastrointestinal (Abdomen) normal bowel sounds, soft, nontender, no hepatosplenomegaly Musculoskeletal no cyanosis or clubbing, extremities motor strength 5/5 Skin no rashes, warm and dry Neurologic PERRL, EOMI, accommodation nl, no face palsy, no dysarthria Psychiatric A+Ox3, euthymic affect Discharge Data Allergies Allergy/AdvReac Type Severity Reaction Status Date / Time propoxyphene AdvReac Unknown UPSET Verified 11/11/19 13:48 STOMACH FROM DARVOCET Consultations 11/11/19 13:44 ED Decision to Admit Stat 11/11/19 16:29 Consult Case Management - Discharge Planning Routine Ordered Studies 11/11/19 11:24 CT abd pelvis wo con Stat 11/11/19 12:23 CT angio chest PE protocol Stat 11/12/19 16:20 US venous doppler LE BI Routine Hospital Course (1) Acute pulmonary embolism without acute cor pulmonale: CTA chest showed B/L acute pulmonary emboli without signs of right heart strain. lower extremity Doppler negative for DVT started on Eliquis pt has been non sedentary lately for past few weeks , possible provoked episode ? will benefit with out patient hypercoagulable work up to determine duration of anti coagulation hx of hemorroids -no bright red blood per rectum so far pt is counselled regarding bleeding risk , notify family physician with any evidence of GI bleed : bleeding per rectum , dark stool avoid antiplatelets and MULTIPLE SCLEROSIS -stable follows with neurology (2) Flank pain: symptoms has resolved CT abdomen /pelvis : no renal or ureteric stone noted (3) HTN (hypertension): BP stable (4) DVT prophylaxis: eliqus DISPOSITION : discharge home today Total Time Total Time Spent Total Time Spent (In Minutes): 35mins Total Time Includes: Examination of the Patient, Discharge Planning and Medication Reconciliation Discharge Plan Discharge Items Patient Disposition: Home - Self-Care Reason For Visit: BL PE Discharge Diagnosis: PULMONARY EMBOLISM /BLOOD CLOT IN LUNGS Condition on Discharge: Good Activity: Resume your previous activity Non-emergency contact: Primary Care Provider Call non-emergency contact if: you have any medication questions Follow-up/Referrals: Prem Moreno MD [Primary Care Provider] - 11/16/19 11:20 am (11/16/2019 11:20 AM Frankie Salinas DO Family [facility] ) Diet: Regular Addtl Attending Provider Instructions: HOSPITAL FOLLOW UP WITH FAMILY PHYSICIAN SCHEDULED PLEASE NOTIFY YOU DOCTOR WITH ANY EVIDENCE OF BLOOD IN STOOL OR DARK /TARRY STOOL DO NOT TAKE ENDOLAC(NSAID-NON STEROIDAL ANTI INFLAMMATORY DRUG ) CAN INCREASE BLEEDING RISK DO NOT TAKE HIGH DOSE ASPIRIN, MOTRIN , ALEVE, ADVIL , NAPROXEN , IBUPROPHEN - WHICH CAN CAUSE BLEEDING /ULCER IN STOMACH WITH COMBINATION OF ELIQUIS Pending Studies at Discharge: No Stand-Alone Forms: My [facility], Smoking Cessation Medications and DC Order Prescriptions: New Eliquis 5 mg (74 tabs) tablets,dose pack 10 mg PO DAILY Qty: 74 RF: 0 Continued pantoprazole [Protonix] 40 mg Tablet,Delayed Release (Dr/Ec) 40 mg PO DAILY RF: 0 losartan 25 mg Tablet 12.5 mg PO DAILY RF: 0 Glucosamine Chondroitin PLUS 101-198-01-54 mg Capsule 2 tab PO QPM RF: 0 melatonin 300 mcg Tablet 0.3 mg PO HS PRN (Reason: Sleep) RF: 0 hydrocortisone acetate 25 mg suppository 25 mg WA BID PRN (Reason: Hemorrhoids) RF: 0 Nitro-Bid 2 % ointment 500 mg topical BID PRN (Reason: Hemorrhoids) RF: 0 furosemide 20 mg tablet 20 mg PO DAILY PRN (Reason: Fluid Retention) RF: 0 Discontinued etodolac 500 mg Tablet Extended Release 24 Hr 1,000 mg PO DAILY RF: 0 Discharge Orders: Discharge Order (Routine); Ordered 11/14/19 Ordered By: Lalita Maya/Other Patient Handouts: Hemorrhoids, Hydrocortisone suppositories, Apixaban oral tablets Admission Data Admit Date/Time: 11/11/19 15:15 Attending Provider: Lalita Tay Admit Provider: David Thompson Primary Care Provider: Prem Moreno Other Providers: David Thompson Other Interventions: Discharge Summary Assessment (RN) Last Done: 11/14/19 12:29
== END 2019-11-14 13:00 | disposition home or self-care (01) | DRG 176 ==
LOC: ED 10:57 → SUATTDRO 14:03 → 2W 14:03